=== PATIENT | male | born 1970 | race Caucasian/White ===

== ENCOUNTER 2018-07-27 17:07 | Inpatient (IN) ==
[2018-07-27] MEDS ORDERED: HYDROmorphone INJ 1 MG/ML SYRINGE IV STA (17:28)
[2018-07-27] MEDS ORDERED: ONDANSETRON INJ 2 MG/ML 2 ML VIAL IV STA (17:28)
[2018-07-27] MEDS ORDERED: SODIUM CHLORIDE 0.9% 1000ML 1,000 ML IV ONE (17:28)
[2018-07-27 17:36] LABS: Basophils # (auto) 0.02 K/uL (0-0.2); Basophils % (auto) 0.3 %; Eosinophils # (auto) 0.11 K/uL (0-0.5); Eosinophils % (auto) 1.7 %; Hematocrit (blood only) 44.7 % (42-52); Hemoglobin 15.4 g/dL (14.0-18.0); Immature Granulocytes # (auto) 0.02 K/uL (0.00-0.02); Immature Granulocytes % (auto) 0.3 %; Lymphocytes # (auto) 2.67 K/uL (1.2-3.4); Lymphocytes % (auto) 40.5 %; Mean Corpuscular Hgb Conc 34.5 g/dL (32-36); Mean Corpuscular Volume 83.4 fL (80-100); Monocytes # (auto) 0.74 K/uL (0.11-0.59); Monocytes % (auto) 11.2 %; Neutrophils # (auto) 3.04 K/uL (1.4-6.5); Platelet Count 206 K/uL (130-400); RDW Coefficient of Variation 12.7 % (11.5-14.5); RDW Standard Deviation 38.1 fL (36.4-46.3); Red Blood Count 5.36 M/uL (4.7-6.1)
[2018-07-27 17:47] LABS: INR 1.1 (0.9-1.1); Partial Thromboplastin Ratio 0.9; Partial Thromboplastin Time 25.3 Seconds (21.0-31.0); Prothrombin Time 10.8 Seconds (9.0-12.0)
[2018-07-27 17:52] LABS: Alanine Aminotransferase 40 U/L (12-78); Aspartate Aminotransferase 25 U/L (15-37); BUN Creatinine Ratio 9.1 (10-20); Blood Urea Nitrogen 13 mg/dl (7-18); Calcium 8.5 mg/dl (8.5-10.1); Carbon Dioxide 30 mmol/L (21-32); Chloride 107 mmol/L (98-107); Est GFR (African American) 69.6; Glucose 96 mg/dl (70-99); Potassium 3.5 mmol/L (3.5-5.1); Sodium 142 mmol/L (136-145)
[2018-07-27 18:03] LABS: Albumin Globulin Ratio 1.2 (0.9-2); Alkaline Phosphatase 112 U/L (45-117); Bilirubin,Total 0.7 mg/dl (0.2-1); Globulin 3.2 gm/dl (2.5-4.0); Total Protein 7.2 gm/dl (6.4-8.2); Troponin I < 0.015 ng/ml (0-0.045)
[2018-07-27 18:07] LABS: iSTAT Creatinine 1.3 mg/dl (0.6-1.3); iSTAT Hemoglobin 15.6 g/dl (14.0-18.0); iSTAT Ionized Calcium 1.14 mmol/l (1.12-1.32); iSTAT Potassium 3.4 mEq/L (3.3-5.0)
--- NOTE | 2018-07-27 18:09 | XRay Report ---
XR chest 1V portable CLINICAL HISTORY: Abdominal pain. COMPARISON STUDY: No previous studies for comparison. FINDINGS: Patient is rotated. Lung volumes are diminished. There is apparent pulmonary vascular conge stion. There is no lobar consolidation. There may be mild right lung airspace opacity. Cardiac size i s accentuated on this hypoventilatory portable AP exam. No pneumothorax or pleural effusion is noted. IMPRESSION: 1. No lung volumes. Apparent pulmonary vascular congestion. No lobar consolidation. 2. Borderline cardiomegaly. Electronically signed by: Rick Chavez M.D. 07/27/2018 6:08 PM
[2018-07-27] MEDS ORDERED: OPTIRAY 320 125ml IV PRN (18:25)
--- NOTE | 2018-07-27 18:47 | CT Scan Report ---
CT ANGIOGRAPHY OF THE CHEST, ABDOMEN, AND PELVIS CLINICAL HISTORY: Severe chest and abdominal pain. COMPARISON STUDY: Chest radiograph July 27, 2018. TECHNIQUE: Before and following the IV administration of 119 mL of Optiray-320, helical axial images of the chest, abdomen and pelvis were obtained. Maximal intensity projections and sagittal and coron al reformats were viewed on an independent 3D workstation. IV contrast was administered without comp lication. Automated exposure control was utilized for the study. A dose lowering technique was util ized adhering to the principles of ALARA. CT DOSE: 2929.73 mGy.cm FINDINGS: The caliber of the thoracic aorta is normal. There is no intramural hematoma or dissection within the thoracic aorta. The size of the heart is within normal limits. There is no pericardial ef fusion. No central pulmonary emboli are identified. The central airways are patent. There are mild gr oundglass opacities within the lungs. A few tiny pulmonary nodules are likely benign. No pneumothorax or pleural effusion is noted. No acute rib or thoracic spine fracture is identified. The abdomen and pelvis will be reported separately. There is no pneumomediastinum. There is minimal dilatation of th e esophagus. IMPRESSION: 1. No thoracic aortic dissection. 2. Minimal groundglass opacities, greater within the right lung. Atelectasis is favored although a mi ld infectious process could appear similar. Electronically signed by: Rick Chavez M.D. 07/27/2018 6:45 PM
--- NOTE | 2018-07-27 18:57 | CT Scan Report ---
CT ANGIOGRAPHY OF THE ABDOMEN AND PELVIS WITH AND WITHOUT CONTRAST CLINICAL HISTORY: midline abdominal pain COMPARISON STUDY: No previous studies for comparison. TECHNIQUE: Unenhanced and arterial phase imaging of the abdomen and pelvis was performed. Intravenous injection 119 cc Optiray 320 IV was uneventful. Sagittal and coronal reconstructions were viewed as well as maximal intensity projections. Automated exposure control was utilized for the study. A dose lowering technique was utilized adhering to the principles of ALARA. FINDINGS: The caliber of the abdominal aorta is normal. There is no dissection. The major vessels are patent. There is no intramural hematoma. No pneumatosis, free air or portal venous gas is present. B ilateral renal calculi measure up to 5 mm. There are no ureteral calculi. There is no hydronephrosis or hydroureter. There is mild distention of the gallbladder with without adjacent infiltration. There is mild to moderate gaseous distention of the colon. There is no transition point to suggest an obst ruction. The appendix is normal. There is no evidence for a small bowel obstruction. Small bowel is m ildly fluid-filled. The spleen, adrenal glands, pancreas are unremarkable. Is no peripancreatic infil tration. There is no biliary or pancreatic ductal dilatation. No lymphadenopathy is present. There is no ascites. No suspicious osseous lesions are noted. There are no lumbar spine fractures. Small fat- containing right inguinal hernia is noted. IMPRESSION: 1. No abdominal aortic dissection or aneurysm. 2. Bilateral nephrolithiasis. No ureteral calculi. 3. Mild distention of the gallbladder without adjacent infiltration. If right upper quadrant pain, an ultrasound could be obtained. 4. Mild to moderate gaseous distention of the colon without transition point to suggest a bowel obstr uction. Electronically signed by: Rick Chavez M.D. 07/27/2018 6:55 PM
[2018-07-27] MEDS ORDERED: HYDROmorphone INJ 0.5 MG/0.5 ML SYR IV STA (19:18)
--- NOTE | 2018-07-27 20:09 | Ultrasound Report ---
ABDOMINAL ULTRASOUND, RIGHT UPPER QUADRANT HISTORY: epigastric/RUQ pain, post-prandial pain. COMPARISON: CTA of the abdomen and pelvis performed earlier today. FINDINGS: Liver morphology is normal. A 1.2 cm echogenic right hepatic lobe lesion was not shown on C T. This favors a hemangioma. There is no biliary ductal dilatation. The common bile duct measures 3 m m in caliber. The pancreas is obscured by overlying bowel gas. Sludge and stones are noted within the gallbladder. The gallbladder is moderately distended. No gallbladder wall thickening. No sonographic Bae sign was elicited. There is no right hydronephrosis. IMPRESSION: 1. Stones and sludge within the gallbladder. Moderate gallbladder distention. No gallbladder wall thi ckening or sonographic Bae sign. Acute cholecystitis cannot be excluded and a hepatobiliary scan c ould be obtained if indicated. 2. No biliary ductal dilatation. 3. Obscured pancreas. Electronically signed by: Rick Chavez M.D. 07/27/2018 8:07 PM
--- NOTE | 2018-07-27 20:40 | Emergency Department Note ---
History of Present Illness General Chief Complaint: Abdominal Pain Stated Complaint: SEVERE STOMACH PAIN Source: patient Mode of arrival: ambulatory Limitations: no limitations History of Present Illness Provider Complaint: abdominal pain Onset (ago): 1 day(s) Pain Consistency: intermittent and colicky Location: suprapubic Radiation: epigastric Migration to: no migration Severity: severe Maximum Pain Intensity: 7 Current Pain Intensity: 8 Quality: + stabbing, + fullness and + sharp Relieved By: + nothing Exacerbated By: + eating Context: no foreign travel, no possible food poisoning, no sick contacts, no recent antibiotic use, no recent surgery/procedure, no recent injury and no history of similar episodes Associated Symptoms: + nausea, + chills and + anorexia; no vomiting, no diarrhea, no fever, no constipation, no melena, no hematuria, no syncope, no headache, no neck pain, no back pain, no chest pain, no weakness, no breathing d ifficulty and no numbness Treatments prior to arrival: none This 48-year-old male patient presents emergency department today, ambulatory, c omplaining of severe abdominal pain. Patient states earlier this week, he was ill with nausea, vomiting, and diarrhea. By , he started feeling better. Sunday, he noticed after he ate he was getting what he describes as "gas pains". This occurred after eating hours before sandwich and fries the first time. This lasted for approximately 1 hour after eating. He was okay overnight, then at work experience the pain after eating twice. The patient states after his first meal, the symptoms lasted for about 30 minutes and were relatively mild, but after eating his more recent meal, he noticed severely worsening gas and pressure in his abdomen with a sharp/colicky pain in the lower abdomen radiating up toward the epigastrium. The patient states the pain does radiate into his back. He has been unable to get comfortable and states his pain is severe and rates 8/10. He describes it as sharp in nature. Patient's last bowel movement was yesterday. He states it was soft but formed. He denies any vomiting, but states he feels that he would feel better if he did. Patient denies any chest pain or dyspnea. He denies any hematuria, urinary frequency, dysuria. He denies any recent fever or chills. Home Medications Home Medications Medication Instructions Recorded Confirmed Type loperamide [Imodium A-D] 2 mg PO DIRECTED PRN 07/27/18 07/27/18 History Allergies Allergy/AdvReac Type Severity Reaction Status Date / Time No Known Allergies Allergy Verified 07/27/18 17:49 Past Med/Surg History Medical History No pertinent past medical history Social History Preferred Language: Bengali Communication Ability: Effective Beliefs That Will Affect Care: Christianity Christianity Beliefs: Beny Current Living Situation: Spouse Feels Safe at Home: Yes Safety Concerns: Feels Safe At This Time Smoking Status: Never smoker Do You Dip or Chew Tobacco: No Hx Alcohol Use: Yes Alcohol type: beer Hx Substance Use: No Review of Systems A total of 10 systems reviewed and were otherwise negative Physical Exam Vital Signs: Vital Signs - 24 hr 07/27/18 17:09 07/27/18 17:42 07/27/18 18:30 Temperature 36.5 C Temperature Source Oral Sepsis Recent Feve r Within 48 Hours No Sepsis Action Take n by Nursing No Action Required Pulse Rate 88 75 Pulse Rate [Apical ] 91 H Pulse Rhythm Regular Regular Pulse Strength Normal Respiratory Rate 28 H 21 16 Respiratory Effort / Characteristics Non-Labored Respiratory Depth Normal Normal Blood Pressure 155/68 H Blood Pressure [Le ft Arm] 130/66 Blood Pressure Dedra n 97 Blood Pressure Dedra n [Left Arm] 87 Blood Pressure Pos ition Sitting Pulse Oximetry 97 94 95 Oxygen Delivery Me thod Room Air Room Air Room Air 07/27/18 19:34 07/27/18 21:00 Temperature Temperature Source Sepsis Recent Feve r Within 48 Hours Sepsis Action Take n by Nursing Pulse Rate Pulse Rate [Apical ] 93 H 89 Pulse Rhythm Pulse Strength Respiratory Rate 18 18 Respiratory Effort / Characteristics Non-Labored Respiratory Depth Normal Normal Blood Pressure Blood Pressure [Le ft Arm] 129/62 127/81 Blood Pressure Dedra n Blood Pressure Dedra n [Left Arm] 84 96 Blood Pressure Pos ition Pulse Oximetry 94 95 Oxygen Delivery Me thod Room Air Room Air Physical Exam: VITALS: Vitals are noted on the nurse's note and reviewed by myself. Vital signs stable. GENERAL: This is a 48-year-old white male, writhing around in pain, unable to get comfortable, diaphoretic, well-developed well-nourished. SKIN: The skin was without rashes, erythema, edema, or bruising. There is no tenting of the skin. Capillary reflex less than 2 seconds. HEAD: Normocephalic atraumatic. EARS: External auditory canals clear, tympanic membranes pearly aldrich without erythema or effusion bilaterally. EYES: Pupils equal round and reactive to light and accommodation. Conjunctivae without injection, sclerae without icterus. Extraocular movements intact. NOSE: Patent, turbinates without inflammation or discharge. No sinus tenderness. MOUTH: Mucous membranes moist. Tonsils are not enlarged. Pharynx without erythema or exudate. Uvula midline. Airway patent. Tongue does not deviate. NECK: Supple without nuchal rigidity. No lymphadenopathy. No thyromegaly. Cervical spine is nontender. No JVD. HEART: Regular rate and rhythm without murmurs gallops or rubs. LUNGS: Clear to auscultation bilaterally without wheezes, rales or rhonchi. No dullness to percussion. No retractions or accessory muscle use. ABDOMEN: Positive bowel sounds x 4. Normal tympanic percussion. Mildly distended and extremely tender diffusely, but specifically in the epigastrium a nd suprapubic area. No obvious masses or organomegaly. Bae sign negative. There is guarding, but no rebound tenderness. MUSCULOSKELETAL: No muscle atrophy, erythema, or edema noted. Full range of motion without joint tenderness in all extremities. No tenderness to palpation. Normal gait. Strength 5/5 throughout. NEURO: Patient was alert and oriented to person place and time. Normal sens ation to light and sharp touch. Deep tendon reflexes 2+ throughout. No focal neurological deficits. Course The patient was seen and evaluated as above. IV access obtained, labs drawn. Patient medicated with IV fluids, Dilaudid, and Zofran. I discussed case with my attending. CXR and CT scanning performed and reviewed by myself and radiologist as above. Labs reviewed by myself. I discussed the findings with the patient at bedside. Recommended ultrasound. He was agreeable. He continues to complain of colicky pain. He was given a repeat dose of 0.5 mg Dilaudid. Ultrasound performed reviewed by myself and radiologist as above. Discussed the case with the on-call surgeon. Spoke with Dr. Case. He was agreeable to medicine admission and surgical consult. Discussed case with the caser up. They were agreeable that the patient meets criteria for admission. Discussed the case with Dr. Castillo, [facility] hospitalist. He agreed to evaluate the patient. Please see his dictation regarding ongoing management care of this patient. Administered Medications Discontinued Medications Hydromorphone HCl (Dilaudid) 1 mg IV NOW STA Stop: 07/27/18 17:29 Last Admin: 07/27/18 17:36 Dose: 1 mg Documented by: [id number] Hydromorphone HCl (Dilaudid) 0.5 mg IV NOW STA Stop: 07/27/18 19:19 Last Admin: 07/27/18 19:33 Dose: 0.5 mg Documented by: [id number] Sodium Chloride (Nss 1000ml) 1,000 mls @ 999 mls/hr IV .Q1H1M ONE Stop: 07/27/18 18:28 Last Infusion: 07/27/18 18:37 Dose: 0 mls/hr Documented by: [id number] Admin: 07/27/18 17:36 Dose: 999 mls/hr Documented by: [id number] Dextrose/Sodium Chloride (D5w And Nss) 1,000 mls @ 125 mls/hr IV .Q8H [place] Stop: 08/26/18 21:56 Last Infusion: 07/28/18 10:18 Dose: 0 mls/hr Documented by: [id number] Admin: 07/28/18 07:35 Dose: 125 mls/hr Documented by: [id number] Infusion: 07/28/18 06:48 Dose: 125 mls/hr Documented by: [id number] Infusion: 07/28/18 06:25 Dose: 125 mls/hr Documented by: [id number] Infusion: 07/28/18 05:00 Dose: 125 mls/hr Documented by: [id number] Infusion: 07/28/18 04:25 Dose: 0 mls/hr Documented by: [id number] Admin: 07/27/18 22:12 Dose: 125 mls/hr Documented by: [id number] Ampicillin Sodium/Sulbactam Sodium 3,000 mg/ Sodium Chloride 108 mls @ 200 mls/hr IV Q6H [place]; Protocol Stop: 08/06/18 21:59 Last Infusion: 07/28/18 10:18 Dose: 0 mls/hr Documented by: [id number] Admin: 07/28/18 09:35 Dose: 200 mls/hr Documented by: [id number] Infusion: 07/28/18 05:00 Dose: 0 mls/hr Documented by: [id number] Admin: 07/28/18 04:23 Dose: 200 mls/hr Documented by: [id number] Infusion: 07/27/18 23:35 Dose: 0 mls/hr Documented by: [id number] Admin: 07/27/18 22:39 Dose: 200 mls/hr Documented by: [id number] Famotidine 20 mg/ Syringe 5 mls @ 2.5 mls/min IV BID [place] Stop: 08/26/18 21:56 Last Admin: 07/28/18 09:35 Dose: 2.5 mls/min Documented by: [id number] Admin: 07/27/18 22:39 Dose: 2.5 mls/min Documented by: [id number] Ioversol (Optiray 320 125ml) 119 ml IV ONCE PRN PRN Reason: Interaction Checking Stop: 07/31/18 18:24 Last Admin: 07/27/18 18:25 Dose: 119 ml Documented by: [id number] Ondansetron HCl (Zofran) 4 mg IV NOW STA Stop: 07/27/18 17:29 Last Admin: 07/27/18 17:36 Dose: 4 mg Documented by: [id number] Medical Decision Making Differential Diagnosis + peptic ulcer disease, + biliary pathology, + UTI, + obstruction, + mesenteric ischemia, + aortic pathology, + infections, + inflammatory bowel disease, + renal colic, + torsion (male), + epididymitis (male), + abdominal pain, + appendicitis, + calculus of kidney, + constipation, + diverticulitis, + endometriosis, + gastroenteritis, + pancreatitis and + small bowel obstruction Home Medications Current Medication List: was personally reviewed by me Laboratory Data Attestation: I reviewed the patient's lab results. No leukocytosis, anemia, thrombocytopenia. Renal, hepatic function, and electrolytes without significant abnormality. Coags normal. Troponin negative. Lipase mildly elevated at 406. TSH 1.55. Urinalysis negative. Result diagrams: 07/28/18 05:12 07/28/18 05:12 Lab Results 07/27/18 07/27/18 07/27/18 Range/Units 17:20 17:20 17:20 WBC 6.60 (4.8-10.8) K/uL RBC 5.36 (4.7-6.1) M/uL Hgb 15.4 (14.0-18.0) g/dL POC Hgb (14.0-18.0) g/dl Hct 44.7 (42-52) % POC Hct (42-52) % MCV 83.4 (80-100) fL MCH 28.7 (25-34) pg MCHC 34.5 (32-36) g/dL RDW Std Deviation 38.1 (36.4-46.3) fL RDW Coeff of Erasto 12.7 (11.5-14.5) % Plt Count 206 (130-400) K/uL MPV 11.0 H (7.4-10.4) fL Immature Gran % (Auto) 0.3 % Neut % (Auto) 46.0 % Lymph % (Auto) 40.5 % Elliott % (Auto) 11.2 % Eos % (Auto) 1.7 % Baso % (Auto) 0.3 % Immature Gran # (Auto) 0.02 (0.00-0.02) K/uL Neut # (Auto) 3.04 (1.4-6.5) K/uL Lymph # (Auto) 2.67 (1.2-3.4) K/uL Elliott # (Auto) 0.74 H (0.11-0.59) K/uL Eos # (Auto) 0.11 (0-0.5) K/uL Baso # (Auto) 0.02 (0-0.2) K/uL PT 10.8 (9.0-12.0) Seconds INR 1.1 (0.9-1.1) APTT 25.3 (21.0-31.0) Seconds PTT Ratio 0.9 POC Sodium (135-144) mEq/L Sodium 142 (136-145) mmol/L POC Potassium (3.3-5.0) mEq/L Potassium 3.5 (3.5-5.1) mmol/L POC Chloride (101-112) mEq/L Chloride 107 (98-107) mmol/L Carbon Dioxide 30 (21-32) mmol/L POC Total CO2 (24-31) mEq/l Anion Gap 5.0 (3-11) POC Anion Gap (16-25) mmol/L POC BUN (7-18) mg/dl BUN 13 (7-18) mg/dl Creatinine 1.38 (0.6-1.4) mg/dl POC Creatinine (0.6-1.3) mg/dl Est Cr Clr Drug Dosing 82.0 ml/min Est GFR ( Amer) 69.6 Est GFR (Non-Af Amer) 60.0 BUN/Creatinine Ratio 9.1 L (10-20) Glucose 96 (70-99) mg/dl POC Glucose (other) (70-99) mg/dl Calcium 8.5 (8.5-10.1) mg/dl POC Ioniz Calcium Aston (1.12-1.32) mmol/l Total Bilirubin 0.7 (0.2-1) mg/dl AST 25 (15-37) U/L ALT 40 (12-78) U/L Alkaline Phosphatase 112 (45-117) U/L Troponin I < 0.015 (0-0.045) ng/ml Total Protein 7.2 (6.4-8.2) gm/dl Albumin 4.0 (3.4-5.0) gm/dl Globulin 3.2 (2.5-4.0) gm/dl Albumin/Globulin Ratio 1.2 (0.9-2) Lipase 406 H (73-393) U/L TSH 1.550 (0.300-4.500) uIu/ml Urine Color Urine Appearance (Clear) Urine pH (4.5-7.5) Ur Specific [place] (1.000-1.030) Urine Protein (Negative) Urine Glucose (UA) (Negative) Urine Ketones (Negative) Urine Blood (Negative) Urine Nitrite (Negative) Urine Bilirubin (Negative) Urine Urobilinogen (Negative) Ur Leukocyte Esterase (Negative) 07/27/18 07/27/18 Range/Units 17:53 20:20 WBC (4.8-10.8) K/uL RBC (4.7-6.1) M/uL Hgb (14.0-18.0) g/dL POC Hgb 15.6 (14.0-18.0) g/dl Hct (42-52) % POC Hct 46 (42-52) % MCV (80-100) fL MCH (25-34) pg MCHC (32-36) g/dL RDW Std Deviation (36.4-46.3) fL RDW Coeff of Erasto (11.5-14.5) % Plt Count (130-400) K/uL MPV (7.4-10.4) fL Immature Gran % (Auto) % Neut % (Auto) % Lymph % (Auto) % Elliott % (Auto) % Eos % (Auto) % Baso % (Auto) % Immature Gran # (Auto) (0.00-0.02) K/uL Neut # (Auto) (1.4-6.5) K/uL Lymph # (Auto) (1.2-3.4) K/uL Elliott # (Auto) (0.11-0.59) K/uL Eos # (Auto) (0-0.5) K/uL Baso # (Auto) (0-0.2) K/uL PT (9.0-12.0) Seconds INR (0.9-1.1) APTT (21.0-31.0) Seconds PTT Ratio POC Sodium 144 (135-144) mEq/L Sodium (136-145) mmol/L POC Potassium 3.4 (3.3-5.0) mEq/L Potassium (3.5-5.1) mmol/L POC Chloride 101 (101-112) mEq/L Chloride (98-107) mmol/L Carbon Dioxide (21-32) mmol/L POC Total CO2 29 (24-31) mEq/l Anion Gap (3-11) POC Anion Gap 18.0 (16-25) mmol/L POC BUN 13 (7-18) mg/dl BUN (7-18) mg/dl Creatinine (0.6-1.4) mg/dl POC Creatinine 1.3 (0.6-1.3) mg/dl Est Cr Clr Drug Dosing ml/min Est GFR ( Amer) Est GFR (Non-Af Amer) BUN/Creatinine Ratio (10-20) Glucose (70-99) mg/dl POC Glucose (other) 99 (70-99) mg/dl Calcium (8.5-10.1) mg/dl POC Ioniz Calcium Aston 1.14 (1.12-1.32) mmol/l Total Bilirubin (0.2-1) mg/dl AST (15-37) U/L ALT (12-78) U/L Alkaline Phosphatase (45-117) U/L Troponin I (0-0.045) ng/ml Total Protein (6.4-8.2) gm/dl Albumin (3.4-5.0) gm/dl Globulin (2.5-4.0) gm/dl Albumin/Globulin Ratio (0.9-2) Lipase (73-393) U/L TSH (0.300-4.500) uIu/ml Urine Color Yellow Urine Appearance Clear (Clear) Urine pH 6.5 (4.5-7.5) Ur Specific [place] 1.037 H (1.000-1.030) Urine Protein Negative (Negative) Urine Glucose (UA) Negative (Negative) Urine Ketones Negative (Negative) Urine Blood Negative (Negative) Urine Nitrite Negative (Negative) Urine Bilirubin Negative (Negative) Urine Urobilinogen Negative (Negative) Ur Leukocyte Esterase Negative (Negative) Imaging Data Radiologist's Impression: XR chest 1V portable CLINICAL HISTORY: Abdominal pain. COMPARISON STUDY: No previous studies for comparison. FINDINGS: Patient is rotated. Lung volumes are diminished. There is apparent pulmonary vascular congestion. There is no lobar consolidation. There may be mild right lung airspace opacity. Cardiac size is accentuated on this hypoventi latory portable AP exam. No pneumothorax or pleural effusion is noted. IMPRESSION: 1. No lung volumes. Apparent pulmonary vascular congestion. No lobar consolidation. 2. Borderline cardiomegaly. Electronically signed by: Rick Chavez M.D. 07/27/2018 6:[address] ANGIOGRAPHY OF THE CHEST, ABDOMEN, AND PELVIS CLINICAL HISTORY: Severe chest and abdominal pain. COMPARISON STUDY: Chest radiograph July 27, 2018. TECHNIQUE: Before and following the IV administration of 119 mL of Optiray-320, helical axial images of the chest, abdomen and pelvis were obtained. Maximal intensity projections and sagittal and coronal reformats were viewed on an independent 3D workstation. IV contrast was administered without complication. Automated exposure control was utilized for the study. A dose lowering technique was utilized adhering to the principles of ALARA. CT DOSE: 2929.73 mGy.cm FINDINGS: The caliber of the thoracic aorta is normal. There is no intramural hematoma or dissection within the thoracic aorta. The size of the heart is within normal limits. There is no pericardial effusion. No central pulmonary emboli are identified. The central airways are patent. There are mild groundglass opacities within the lungs. A few tiny pulmonary nodules are likely benign. No pneumothorax or pleural effusion is noted. No acute rib or thoracic spine fracture is identified. The abdomen and pelvis will be reported separately. There is no pneumomediastinum. There is minimal dilatation of the esophagus. IMPRESSION: 1. No thoracic aortic dissection. 2. Minimal groundglass opacities, greater within the right lung. Atelectasis is favored although a mild infectious process could appear similar. Electronically signed by: Rick Chavez M.D. 07/27/2018 6:[address] ANGIOGRAPHY OF THE ABDOMEN AND PELVIS WITH AND WITHOUT CONTRAST CLINICAL HISTORY: midline abdominal pain COMPARISON STUDY: No previous studies for comparison. TECHNIQUE: Unenhanced and arterial phase imaging of the abdomen and pelvis was performed. Intravenous injection 119 cc Optiray 320 IV was uneventful. Sagittal and coronal reconstructions were viewed as well as maximal intensity proje ctions. Automated exposure control was utilized for the study. A dose lowering technique was utilized adhering to the principles of ALARA. FINDINGS: The caliber of the abdominal aorta is normal. There is no dissection. The major vessels are patent. There is no intramural hematoma. No pneumatosis, free air or portal venous gas is present. Bilateral renal calculi measure up to 5 mm. There are no ureteral calculi. There is no hydronephrosis or hydroureter. There is mild distention of the gallbladder with without adjacent infiltration. There is mild to moderate gaseous distention of the colon. There is no transition point to suggest an obstruction. The appendix is normal. There is no evidence for a small bowel obstruction. Small bowel is mildly fluid-filled. The spleen, adrenal glands, pancreas are unremarkable. Is no peripancreatic infiltration. There is no biliary or pancreatic ductal dilatation. No lymphadenopathy is present. There is no ascites. No suspicious osseous lesions are noted. There are no lumbar spine fractures. Small fat-containing right inguinal hernia is noted. IMPRESSION: 1. No abdominal aortic dissection or aneurysm. 2. Bilateral nephrolithiasis. No ureteral calculi. 3. Mild distention of the gallbladder without adjacent infiltration. If right upper quadrant pain, an ultrasound could be obtained. 4. Mild to moderate gaseous distention of the colon without transition point to suggest a bowel obstruction. Electronically signed by: Rick Chavez M.D. 07/27/2018 6:55 PM ABDOMINAL ULTRASOUND, RIGHT UPPER QUADRANT HISTORY: epigastric/RUQ pain, post-prandial pain. COMPARISON: CTA of the abdomen and pelvis performed earlier today. FINDINGS: Liver morphology is normal. A 1.2 cm echogenic right hepatic lobe lesion was not shown on CT. This favors a hemangioma. There is no biliary ductal dilatation. The common bile duct measures 3 mm in caliber. The pancreas is obscured by overlying bowel gas. Sludge and stones are noted within the gall bladder. The gallbladder is moderately distended. No gallbladder wall thickening. No sonographic Bae sign was elicited. There is no right hydronephrosis. IMPRESSION: 1. Stones and sludge within the gallbladder. Moderate gallbladder distention. No gallbladder wall thickening or sonographic Bae sign. Acute cholecystitis cannot be excluded and a hepatobiliary scan could be obtained if indicated. 2. No biliary ductal dilatation. 3. Obscured pancreas. Electronically signed by: Rick Chavez M.D. 07/27/2018 8:07 PM ECG Data Attestation: I personally reviewed and interpreted this ECG as follows: Indication: abdominal pain Rate (beats per minute): 65 Rhythm: normal sinus Findings: no acute ischemic change and no ectopy Comparison ECG Date: no prior available Blood Pressure Blood Pressure Findings: Normal blood pressure MDM Narrative This 48-year-old male patient presents emergency department today complaining of severe abdominal pain. The patient was writhing around in pain and unable to be calm comfortable. The pain was very colicky in nature and onset was after eating a peanut butter and jelly sandwich. Due to the nature of the pain and location being all midline in the abdomen and radiating from the mid pelvis to the sternum, there was concern for possible dissection. We did elect to perform a CTA of the chest, abdomen, and pelvis. This did not show any evidence of dissection, but did show distention of the gallbladder without adjacent infilt ration. There was mild to moderate gaseous distention of the colon without transition point. Ultrasound was performed at this point to rule out acute cholecystitis. This showed stones and sludge within the gallbladder with moderate gallbladder distention. No thickening or sonographic Bae sign. Acute cholecystitis could not be excluded and a HIDA scan was recommended by the radiologist. The patient's pain was controlled with IV narcotics. He was unable to tolerate food or fluids by mouth. I did discuss the case with the surgeon, who is agreeable to medicine admission with surgical consult. I discussed the case with the hospitalist who agreed to evaluate the patient. The patient will be admitted as an inpatient. Please see the hospitalist dictation regarding ongoing management care of this patient. The chart was completed utilizing [employer]™ Speech voice recognition software. Grammatical errors, random word insertions, pronoun errors, and incomplete sentences are an occasional consequence of this system due to software limitations, ambient noise, and hardware issues. Any formal questions or concerns about the content, text, or information contained within the body of t his dictation should be directly addressed to the provider for clarification. Impression & Plan Abdominal pain Discharge Plan Visit Data *Final* Discharge Date/Time: 07/27/18 21:43 Chief Complaint: Abdominal Pain Stated Complaint: SEVERE STOMACH PAIN ED Provider: Wilson Moreno ED Midlevel Provider: Ainsley Mason Discharge Problem: Abdominal pain Patient Disposition: Admitted As Inpatient Condition: Good Discharge Instructions Interventions: ED Discharge Assessment Last Done: 07/27/18 21:43 Discharge Problem: Abdominal pain Qualifiers: Abdominal location: generalized Qualified Code(s): R10.84 - Generalized abdom inal pain
[2018-07-27 21:25] LABS: Appearance Urine Clear (Clear); Bilirubin Urine Negative (Negative); Blood Urine Negative (Negative); Color Urine Yellow; Glucose Urine UA Negative (Negative); Ketones Urine Negative (Negative); Leukocyte Esterase Urine Negative (Negative); Nitrite Urine Negative (Negative); Protein Urine Negative (Negative); Specific Gravity Urine 1.037 (1.000-1.030); Urobilinogen Urine Negative (Negative); pH Urine 6.5 (4.5-7.5)
[2018-07-27] MEDS ORDERED: ONDANSETRON INJ 2 MG/ML 2 ML VIAL IV PRN (21:57)
[2018-07-27] MEDS ORDERED: ACETAMINOPHEN 325 MG TAB PO PRN (21:57)
[2018-07-27] MEDS ORDERED: HYDROmorphone INJ 0.5 MG/0.5 ML SYR IV PRN (21:57)
[2018-07-27] MEDS ORDERED: AMPICILLIN/SULBACTAM CONSULT ACTIVE PRN (22:07)
[2018-07-27] MEDS: D5W AND NSS 1,000 ML IV SCH (22:12)
[2018-07-27] MEDS: FAMOTIDINE 20 MG in SYRINGE 3 ML IV SCH (22:39)
[2018-07-27] MEDS: AMPICILLIN/SULBACTAM SOD 3,000 MG in 0.9 % SODIUM CHLORIDE 100 ML IV SCH (22:39)
--- NOTE | 2018-07-27 23:08 | History and Physical Report ---
DATE OF ADMISSION: 07/27/2018 CHIEF COMPLAINT: Abdominal pain. HISTORY OF PRESENT ILLNESS: This is a 48-year-old male with no significant past medical history, who presents with abdominal pain. The patient since last Sunday, was having nausea and vomiting and diarrhea. He could not eat much. Whatever he ate was coming up. Yesterday, he ate sandwich and fries which caused some abdominal discomfort and nausea and vomiting. Yesterday he had a somewhat soft bowel movement. Today, there is no bowel movement. [place] and he works in a correction facility. He had a 16-hour work schedule today and he tried to eat peanut butter with jelly, then immediately he started developing severe abdominal pain, nausea, vomiting, and came to the ER. He required significant pain medication and in the ER, imaging studies were done initially to rule out any dissection. But the studies showed distended gall bladder.. An ultrasound was obtained which showed stones and sludge within the gallbladder, moderate gallbladder distention. No gallbladder wall thickening or sonographic Bae's sign. Acute cholecystitis could not be excluded. HIDA scan recommended.There is no fever, chills, no leukocytosis. The patient had some headache last 2 days ago, but right now he has no headaches, no blurred visions, no earache, no runny nose, no sore throat, no difficulty swallowing. No chest pain, no shortness of breath, no cough, no fever, no chills, but he has severe abdominal pain it was all over the abdomen from the lower part of sternum to the pelvic region. Currently, pain is improved with pain medications. Nausea has also improved. No burning micturition, no hematuria. No blood in the stools. No swelling in the legs. No rash. Hemodynamically stable. ALLERGIES: No known drug allergies. PAST MEDICAL HISTORY: As mentioned above. PAST SURGICAL HISTORY: He had a right rotator cuff repair and also right knee repair. MEDICATIONS: None. FAMILY HISTORY: Father had CABG and stents. Mother had cancer. SOCIAL HISTORY: Denies smoking, alcohol occasionally. No drug use. REVIEW OF SYMPTOMS: As per HPI. Rest of the review of symptoms negative. PHYSICAL EXAMINATION: GENERAL: The patient is of moderate build, not in acute distress. VITAL SIGNS: Temperature 36.5, pulse 93, respiratory rate 18, blood pressure 129/62, oxygen 94% on room air. HEENT: No pallor, no icterus. Pupils equal, round, and reactive to light. NECK: No JVD, no neck masses, no carotid bruits. CARDIOVASCULAR: S1, S2 heard, regular rate and rhythm, no murmur, no gallop. RESPIRATORY SYSTEM: Normal AP diameter. No accessory muscle use. No wheezing, no crackles. ABDOMEN: Soft, bowel sounds present. Nontender. No distention. CENTRAL NERVOUS SYSTEM: Cranial nerves II-XII grossly intact, nonfocal. SKIN: Some peeling of the skin is seen in the back. EXTREMITIES: No edema, no erythema. LABORATORY DATA: WBC 6.6, hemoglobin 15.4, hematocrit 44.7, platelets 206. PT 10.8, INR 1.1, APTT 25.3. Sodium 142, potassium 3.5, chloride 107, bicarbonate 30, BUN 13, creatinine 1.3, serum glucose 196, total calcium 8.5, total bilirubin 0.7, AST 25, ALT 40, alkaline phosphatase 112. Troponin I less than 0.015. Lipase 406, TSH 1.5. Urinalysis pending. IMAGING DATA: Chest x-ray,low lung volumes, no lobar consolidation. CT of the abdomen and pelvis, no abdominal aortic dissection or aneurysm, bilateral nephrolithiasis, no ureteral calculi. Mild distention of the gallbladder without adjacent infiltration, [id number] gaseous distention of the colon with a transition point to suggest bowel obstruction. Chest CTA, no thoracic aortic dissection, minimal ground-glass opacities, greater within the right lung, atelectasis, although mild infectious process could appear similar. ASSESSMENT AND PLAN: This is a 48-year-old male who presents with severe abdominal pain, most likely biliary colic with possible cholecystitis. 1. Abdominal pain, biliary colic, possible cholecystitis on imaging studies. No leukocytosis. No white count. We will empirically place him on IV Unasyn, n.p.o., IV fluids, IV antiemetics. Surgical consult. We will get a HIDA scan and closely monitor in the medical floor. 2. Deep venous thrombosis prophylaxis, sequential compression devices for now. 3. Disposition: Closely monitor in the medical floor. Level 1 full code. MTDD
[2018-07-28] MEDS: AMPICILLIN/SULBACTAM SOD 3,000 MG in 0.9 % SODIUM CHLORIDE 100 ML IV SCH ×2 (04:23→09:35)
[2018-07-28 05:26] LABS: Basophils # (auto) 0.02 K/uL (0-0.2); Basophils % (auto) 0.3 %; Eosinophils # (auto) 0.09 K/uL (0-0.5); Eosinophils % (auto) 1.5 %; Hematocrit (blood only) 39.3 % (42-52); Hemoglobin 13.3 g/dL (14.0-18.0); Immature Granulocytes # (auto) 0.02 K/uL (0.00-0.02); Immature Granulocytes % (auto) 0.3 %; Lymphocytes # (auto) 1.65 K/uL (1.2-3.4); Lymphocytes % (auto) 27.2 %; Mean Corpuscular Hgb Conc 33.8 g/dL (32-36); Mean Corpuscular Volume 83.1 fL (80-100); Monocytes # (auto) 0.74 K/uL (0.11-0.59); Monocytes % (auto) 12.2 %; Neutrophils # (auto) 3.54 K/uL (1.4-6.5); Neutrophils % (auto) 58.5 %; Platelet Count 170 K/uL (130-400); RDW Coefficient of Variation 12.7 % (11.5-14.5); RDW Standard Deviation 38.4 fL (36.4-46.3); Red Blood Count 4.73 M/uL (4.7-6.1); White Blood Count 6.06 K/uL (4.8-10.8)
[2018-07-28 05:44] LABS: BUN Creatinine Ratio 7.5 (10-20); Calcium 7.8 mg/dl (8.5-10.1); Creatinine Clr Calc Pharmacy 102.9 ml/min; Est GFR (African American) 91.5; Potassium 3.9 mmol/L (3.5-5.1)
[2018-07-28 05:56] LABS: Albumin Level 2.9 gm/dl (3.4-5.0); Bilirubin Direct 0.1 mg/dl (0-0.2); Bilirubin,Total 0.6 mg/dl (0.2-1); Total Protein 5.4 gm/dl (6.4-8.2)
[2018-07-28 07:18] VITALS: BP 104/62; TEMP 98.4; O2SAT 95
[2018-07-28] MEDS: D5W AND NSS 1,000 ML IV SCH (07:35)
--- NOTE | 2018-07-28 09:10 | Surgery Consultation ---
Date of Consultation July 28, 2018 Assessment & Plan (1) Abdominal pain: pt is a 48 year-old male who was admitted to hospital for acute abdominal pain and diarrhea. U/S- gallstone. no gallbladder wall thickening or edema IMP: acute abdominal pain, possible, GI infection, biliary colic Plan, base on pt has no abdominal pain now, pt wants to go home today, pt will come for laparoscopic cholecystectomy, possible open or cholangiogram tomorrow, D/W benefits, risks nad alternatives of the surgery, the risks - infection, bleeding, injury CBD, bowel, may need ERCP, , pt and his understood, they agree with surgery, I answered all questions. cancel HIDA scan, pt can be discharged home today, pt should come back to ER if pt develops severe abdominal pain again, pt understood, History of Present Illness Attending Physician: Jackie Manzanares MD pt is a 48 year-old male who was admitted to hospital for 2 weeks history diarrhea with abdominal pain, nausea and vomiting, started 2 weeks ago, pt and his had diarrhea, nausea and vomiting, the pt felt better after 3 days, pt started to have worse lower abdominal pain 2 days ago, with nausea, no vomiting, now, pt has no abdominal pain, no nausea, no vomiting, pt denies fever, no diarrhea, no back pain, pt had U/S study- gallstone. otherwise pt is health in the past. Allergies Allergy/AdvReac Type Severity Reaction Status Date / Time No Known Allergies Allergy Verified 07/27/18 17:49 Home Medications Home Medications Medication Instructions Recorded Confirmed Type loperamide [Imodium A-D] 2 mg PO DIRECTED PRN 07/27/18 07/27/18 History naproxen sodium [Aleve] 220 mg PO Q12H PRN 07/27/18 07/27/18 History Patient History Medical History No pertinent past medical history Social History Preferred Language: Hungarian Communication Ability: Effective Beliefs That Will Affect Care: Christianity Christianity Beliefs: Beny Current Living Situation: Spouse Feels Safe at Home: Yes Safety Concerns: Feels Safe At This Time Smoking Status: Never smoker Do You Dip or Chew Tobacco: No Hx Alcohol Use: Yes Alcohol type: beer Hx Substance Use: No Review of Systems Constitutional: as per Subjective / HPI Ear, Nose, Mouth, Throat: as per Subjective / HPI Respiratory: as per Subjective / HPI Cardiovascular: as per Subjective / HPI Gastrointestinal: + abdominal pain and + nausea Genitourinary: + as per Subjective / HPI Musculoskeletal: as per Subjective / HPI Integumentary: as per Subjective / HPI Neurologic: as per Subjective / HPI Psychiatric: as per Subjective / HPI Endocrine: as per Subjective / HPI Hematologic / Lymphatic: as per Subjective / HPI Physical Exam Constitutional: WD/WN, vitals as above well developed and well nourished ENMT: external ear and nose normal, oropharynx normal Ears: + hearing impairment Neck: trachea midline, no thyromegaly Respiratory: normal respiratory effort, lungs clear to auscultation normal respiratory effort Cardiovascular: RRR, no murmur, no edema Rate/Rhythm: regular rate and regular rhythm Heart Sounds: normal S1 and normal S2 Gastrointestinal (Abdomen): normal bowel sounds, soft, nontender, no hepatosplenomegaly Inspection/Auscultation: abdomen normal to inspection Percussion/Palpation: abdomen soft NT, ND, no distend Neurologic: patellar DTR's 2+ bilat, sensation intact Psychiatric: Orientation: alert and oriented x 3 Results & Data Vital Signs (Past 12 Hours) Vital Signs Temp Pulse Resp BP Pulse Ox 07/28/18 07:17 36.9 C 57 L 19 104/62 95 07/27/18 22:51 37 C 61 18 129/73 92 Laboratory Results Abnormal lab results 07/27/18 07/27/18 07/27/18 Range/Units 17:20 17:20 20:20 Hgb (14.0-18.0) g/dL Hct (42-52) % MPV 11.0 H (7.4-10.4) fL [place] # (Auto) 0.74 H (0.11-0.59) K/uL Chloride (98-107) mmol/L Anion Gap (3-11) BUN/Creatinine Ratio 9.1 L (10-20) Calcium (8.5-10.1) mg/dl Total Protein (6.4-8.2) gm/dl Albumin (3.4-5.0) gm/dl Lipase 406 H (73-393) U/L Ur Specific [place] 1.037 H (1.000-1.030) 07/28/18 07/28/18 07/28/18 Range/Units 05:12 05:12 05:12 Hgb 13.3 L (14.0-18.0) g/dL Hct 39.3 L (42-52) % MPV 11.0 H (7.4-10.4) fL [place] # (Auto) 0.74 H (0.11-0.59) K/uL Chloride 109 H (98-107) mmol/L Anion Gap 2.0 L (3-11) BUN/Creatinine Ratio 7.5 L (10-20) Calcium 7.8 L (8.5-10.1) mg/dl Total Protein 5.4 L D (6.4-8.2) gm/dl Albumin 2.9 L (3.4-5.0) gm/dl Lipase (73-393) U/L Ur Specific [place] (1.000-1.030) Diagnostic Findings ABDOMINAL ULTRASOUND, RIGHT UPPER QUADRANT HISTORY: epigastric/RUQ pain, post-prandial pain. COMPARISON: CTA of the abdomen and pelvis performed earlier today. FINDINGS: Liver morphology is normal. A 1.2 cm echogenic right hepatic lobe lesion was not shown on CT. This favors a hemangioma. There is no biliary ductal dilatation. The common bile duct measures 3 mm in caliber. The pancreas is obscured by overlying bowel gas. Sludge and stones are noted within the gallbladder. The gallbladder is moderately distended. No gallbladder wall thickening. No sonographic Bae sign was elicited. There is no right hydronephrosis. IMPRESSION: 1. Stones and sludge within the gallbladder. Moderate gallbladder distention. No gallbladder wall thickening or sonographic Bae sign. Acute cholecystitis cannot be excluded and a hepatobiliary scan could be obtained if indicated. 2. No biliary ductal dilatation. 3. Obscured pancreas. CT ANGIOGRAPHY OF THE ABDOMEN AND PELVIS WITH AND WITHOUT CONTRAST CLINICAL HISTORY: midline abdominal pain COMPARISON STUDY: No previous studies for comparison. TECHNIQUE: Unenhanced and arterial phase imaging of the abdomen and pelvis was performed. Intravenous injection 119 cc Optiray 320 IV was uneventful. Sagittal and coronal reconstructions were viewed as well as maximal intensity projections. Automated exposure control was utilized for the study. A dose lowering technique was utilized adhering to the principles of ALARA. FINDINGS: The caliber of the abdominal aorta is normal. There is no dissection. The major vessels are patent. There is no intramural hematoma. No pneumatosis, free air or portal venous gas is present. Bilateral renal calculi measure up to 5 mm. There are no ureteral calculi. There is no hydronephrosis or hydroureter. There is mild distention of the gallbladder with without adjacent infiltration. There is mild to moderate gaseous distention of the colon. There is no transition point to suggest an obstruction. The appendix is normal. There is no evidence for a small bowel obstruction. Small bowel is mildly fluid-filled. The spleen, adrenal glands, pancreas are unremarkable. Is no peripancreatic infiltration. There is no biliary or pancreatic ductal dilatation. No lymphadenopathy is present. There is no ascites. No suspicious osseous lesions are noted. There are no lumbar spine fractures. Small fat-containing right inguinal hernia is noted. IMPRESSION: 1. No abdominal aortic dissection or aneurysm. 2. Bilateral nephrolithiasis. No ureteral calculi. 3. Mild distention of the gallbladder without adjacent infiltration. If right upper quadrant pain, an ultrasound could be obtained. 4. Mild to moderate gaseous distention of the colon without transition point to suggest a bowel obstruction. (1) Abdominal pain Abdominal location: generalized Qualified Code(s): R10.84 - Generalized abdominal pain
[2018-07-28] MEDS: FAMOTIDINE 20 MG in SYRINGE 3 ML IV SCH (09:35)
--- NOTE | 2018-07-28 09:37 | Anesthesiology Consultation ---
Date of Service July 29, 2018 Assessment & Plan Chart Review Chart Review: Acceptable Risk for Surgery and Patient NOT seen in Pre Admission Testing Consults Requested none Proposed Anesthesia Anesthesia Type: General History Surgery Lap Cholecystectomy Height/Weight Height: 1.83 m Weight: 105 kg Allergies Allergy/AdvReac Type Severity Reaction Status Date / Time No Known Allergies Allergy Verified 07/27/18 17:49 Medications Home Medications Medication Instructions Recorded Confirmed Last Taken loperamide [Imodium A-D] 2 mg PO DIRECTED PRN 07/27/18 07/27/18 Unknown naproxen sodium [Aleve] 220 mg PO Q12H PRN 07/27/18 07/27/18 Unknown Active Medications Generic Name Dose Route Start Last Admin Trade Name Freq PRN Reason Stop Dose Admin Dextrose/Sodium Chloride 1,000 mls @ 125 mls/hr 07/27/18 21:57 07/28/18 07:35 D5w And Nss IV 08/26/18 21:56 125 mls/hr .Q8H [place] Administration Ampicillin Sodium/Sulbactam 108 mls @ 200 mls/hr 07/27/18 22:00 07/28/18 09:35 Sodium 3,000 mg/ Sodium IV 08/06/18 21:59 200 mls/hr Chloride Q6H [place] Administration Protocol Famotidine 20 mg/ Syringe 5 mls @ 2.5 mls/min 07/27/18 21:57 07/28/18 09:35 IV 08/26/18 21:56 2.5 mls/min BID [place] Administration Past Medical History Medical History No pertinent past medical history Exercise / Class Metabolic Activity II 4-5 Yardwork/Stairs/Walk up [place] Social History Smoking Status: Never smoker Do You Dip or Chew Tobacco: No Hx Alcohol Use: Yes Alcohol type: beer alcohol intake frequency: other Alcohol Intake Frequency Comment: about 2 beers every 2-3 months Hx Substance Use: No Physical Exam Vital Signs Last Vital Signs Temp 36.9 C 07/28/18 07:17 Pulse 57 L 07/28/18 07:17 Resp 19 07/28/18 07:17 BP 104/62 07/28/18 07:17 Pulse Ox 95 07/28/18 07:17 Testing Laboratory Results 07/28/18 05:12 07/28/18 05:12 07/27/18 07/27/18 17:20 20:20 PT 10.8 INR 1.1 APTT 25.3 Urine Color Yellow Urine Appearance Clear Urine pH 6.5 Ur Specific [place] 1.037 H Urine Protein Negative Urine Glucose (UA) Negative Urine Ketones Negative Urine Nitrite Negative Ur Leukocyte Esterase Negative Electrocardiogram Date: 07/27/18 Findings: + NSR @ (65 bpm) Chest X-Ray Date: 07/27/18 FINDINGS: Patient is rotated. Lung volumes are diminished. There is apparent pulmonary vascular congestion. There is no lobar consolidation. There may be mild right lung airspace opacity. Cardiac size is accentuated on this hypoventilatory portable AP exam. No pneumothorax or pleural effusion is noted. IMPRESSION: 1. No lung volumes. Apparent pulmonary vascular congestion. No lobar consolidation. 2. Borderline cardiomegaly Other Testing 07/27/18 CT ANGIOGRAPHY OF THE CHEST, ABDOMEN, AND PELVIS CLINICAL HISTORY: Severe chest and abdominal pain. COMPARISON STUDY: Chest radiograph July 27, 2018. TECHNIQUE: Before and following the IV administration of 119 mL of Optiray-320, helical axial images of the chest, abdomen and pelvis were obtained. Maximal intensity projections and sagittal and coronal reformats were viewed on an independent 3D workstation. IV contrast was administered without complication. Automated exposure control was utilized for the study. A dose lowering techn ique was utilized adhering to the principles of ALARA. CT DOSE: 2929.73 mGy.cm FINDINGS: The caliber of the thoracic aorta is normal. There is no intramural hematoma or dissection within the thoracic aorta. The size of the heart is within normal limits. There is no pericardial effusion. No central pulmonary emboli are identified. The central airways are patent. There are mild groundglass opacities within the lungs. A few tiny pulmonary nodules are likely benign. No pneumothorax or pleural effusion is noted. No acute rib or thoracic spine fracture is identified. The abdomen and pelvis will be reported separately. There is no pneumomediastinum. There is minimal dilatation of the esophagus. IMPRESSION: 1. No thoracic aortic dissection. 2. Minimal groundglass opacities, greater within the right lung. Atelectasis is favored although a mild infectious process could appear similar.
--- NOTE | 2018-07-28 10:22 | Hospitalist Progress Note ---
Date of Service July 28, 2018 Assessment & Plan (1) Abdominal pain: Has been complaining of abdominal pain with nausea vomiting for the last 1 week and worse since Sunday Has cholelithiasis and bilateral nephrolithiasis Denies any more pain, nausea or vomiting and no more diarrhea (2) Acute cholecystitis: Has cholelithiasis with sludge in the gallbladder Mild dilatation of the gallbladder without any wall thickening and/or sonographic findings of acute cholecystitis Patient remains afebrile without any elevation of the white count Was seen by surgery and going to have laparoscopic cholecystectomy tomorrow The patient can be discharged as per surgery today and will be coming back tomorrow morning for outpatient cholecystectomy Discussed with the patient in detail and the pros and cons of leaving the hospital He has been receiving intravenous Unasyn and was advised to be n.p.o. for tonight The surgery team cannot start antibiotic tomorrow There is a small risk of having an attack of acute cholecystitis and the patient and the accepted that risk Will discharge him this afternoon (3) Bilateral nephrolithiasis: Seems to be asymptomatic No ureteric stone Subjective 07/28 The patient was seen and examined in the medical floor in presence of the He is a 48-year old man with no significant past medical history was admitted with abdominal pain nausea and vomiting He was noted to have cholelithiasis with mild distention of the gallbladder without any acute cholecystitis as per the report Denies any symptoms as of this morning No fever and/or chills He wants to go home Review of Systems Review of Systems: All systems reviewed and are unremarkable except as noted below Gastrointestinal: no abdominal pain, no belching, no nausea and no vomiting Physical Exam Physical Exam: No apparent distress at rest Constitutional: well developed and well nourished Eyes: PERRL, conjunctivae normal, anicteric sclerae ENMT: external ear and nose normal, oropharynx normal Neck: trachea midline, no thyromegaly Respiratory: normal respiratory effort, lungs clear to auscultation Cardiovascular: RRR, no murmur, no edema Gastrointestinal (Abdomen): normal bowel sounds, soft, nontender, no hepatosplenomegaly Inspection/Auscultation: abdomen normal to inspection and normal bowel sounds Percussion/Palpation: abdomen nontender, no guarding and abdomen not rigid Neurologic: patellar DTR's 2+ bilat, sensation intact Psychiatric: A+Ox3, euthymic affect Genitourinary: no CVA tenderness Lymphatic: no cervical or axillary lymphadenopathy Results & Data Vital Signs (Past 12 Hours) Vital Signs Temp Pulse Resp BP Pulse Ox 07/28/18 07:17 36.9 C 57 L 19 104/62 95 07/27/18 22:51 37 C 61 18 129/73 92 Laboratory Results Short CBC 07/27/18 07/28/18 Range/Units 17:20 05:12 WBC 6.60 6.06 (4.8-10.8) K/uL Hgb 15.4 13.3 L (14.0-18.0) g/dL Hct 44.7 39.3 L (42-52) % Plt Count 206 170 (130-400) K/uL BMP 07/27/18 07/28/18 17:20 05:12 Sodium 142 142 Potassium 3.5 3.9 Chloride 107 109 H Carbon Dioxide 30 31 BUN 13 8 D Creatinine 1.38 1.10 Glucose 96 95 Calcium 8.5 7.8 L Cardiac Enzymes 07/27/18 Range/Units 17:20 Troponin I < 0.015 (0-0.045) ng/ml Liver Function 07/27/18 07/28/18 Range/Units 17:20 05:12 Total Bilirubin 0.7 0.6 (0.2-1) mg/dl Direct Bilirubin 0.1 (0-0.2) mg/dl AST 25 17 (15-37) U/L ALT 40 29 (12-78) U/L Alkaline Phosphatase 112 78 (45-117) U/L Albumin 4.0 2.9 L (3.4-5.0) gm/dl Urine 07/27/18 Range/Units 20:20 Urine Color Yellow Urine Appearance Clear (Clear) Urine pH 6.5 (4.5-7.5) Ur Specific [place] 1.037 H (1.000-1.030) Urine Protein Negative (Negative) Urine Glucose (UA) Negative (Negative) Diagnostic Findings CTA of the chest-no thoracic aortic dissection, minimal groundglass opacities within the right lung which favors atelectasis CTA of the abdomen-no abdominal aortic dissection and/or aneurysm, bilateral nephrolithiasis without any pediatric stone Mild gallbladder distention without existent infiltration Ultrasound of the gallbladder-stones and sludge in gallbladder, moderate to moderate distention without any wall thickening or sonographic Bae sign acute cholecystitis. Cannot be excluded Hepatobiliary scan was suggested Medications Administered Current Inpatient Medications Acetaminophen (Tylenol) 650 mg PO Q4H PRN PRN Reason: pain/fever Stop: 08/26/18 21:56 Hydromorphone HCl (Dilaudid) 0.5 mg IV Q3H PRN PRN Reason: Pain Stop: 08/10/18 21:56 Dextrose/Sodium Chloride (D5w And Nss) 1,000 mls @ 125 mls/hr IV .Q8H [place] Stop: 08/26/18 21:56 Last Infusion: 07/28/18 10:18 Dose: 0 mls/hr Documented by: Ampicillin Sodium/Sulbactam Sodium 3,000 mg/ Sodium Chloride 108 mls @ 200 mls/hr IV Q6H [place]; Protocol Stop: 08/06/18 21:59 Last Infusion: 07/28/18 10:18 Dose: Infused Documented by: Famotidine 20 mg/ Syringe 5 mls @ 2.5 mls/min IV BID [place] Stop: 08/26/18 21:56 Last Admin: 07/28/18 09:35 Dose: 2.5 mls/min Documented by: Miscellaneous Information (Ampicillin/Sulbactam Consult) 1 ea N/A DAILY PRN PRN Reason: Consult Stop: 08/26/18 22:06 Ondansetron HCl (Zofran) 4 mg IV Q6H PRN PRN Reason: Nausea Stop: 08/26/18 21:56 (1) Abdominal pain Abdominal location: generalized Qualified Code(s): R10.84 - Generalized abdominal pain
[2018-07-28 11:54] VITALS: PULSE 89
--- NOTE | 2018-07-29 08:20 | Discharge Summary ---
Date of Service July 29, 2018 Admission HPI Per Admitting Provider DICTATED BY: Reid Castillo MD DATE OF ADMISSION: 07/27/2018 CHIEF COMPLAINT: Abdominal pain. HISTORY OF PRESENT ILLNESS: This is a 48-year-old male with no significant past medical history, who presents with abdominal pain. The patient since last Sunday, was having nausea and vomiting and diarrhea. He could not eat much. Whatever he ate was coming up. Yesterday, he ate sandwich and fries which caused some abdominal discomfort and nausea and vomiting. Yesterday he had a somewhat soft bowel movement. Today, there is no bowel movement. He is from [place] and he works in a correction facility. He had a 16-hour work schedule today and he tried to eat peanut butter with jelly, then immediately he started developing severe abdominal pain, nausea, vomiting, and came to the ER. He required significant pain medication and in the ER, imaging studies were done initially to rule out any dissection. But the studies showed distended gall bladder.. An ultrasound was obtained which showed stones and sludge within the gallbladder, moderate gallbladder distention. No gallbladder wall thickening or sonographic Bae's sign. Acute cholecystitis could not be excluded. HIDA scan recommended.There is no fever, chills, no leukocytosis. The patient had some headache last 2 days ago, but right now he has no headaches, no blurred visions, no earache, no runny nose, no sore throat, no difficulty swallowing. No chest pain, no shortness of breath, no cough, no fever, no chills, but he has severe abdominal pain it was all over the abdomen from the lower part of sternum to the pelvic region. Currently, pain is improved with pain medications. Nausea has also improved. No burning micturition, no hematuria. No blood in the stools. No swelling in the legs. No rash. Hemodynamically stable. Admission Exam Per Admitting Provider GENERAL: The patient is of moderate build, not in acute distress. VITAL SIGNS: Temperature 36.5, pulse 93, respiratory rate 18, blood pressure 129/62, oxygen 94% on room air. HEENT: No pallor, no icterus. Pupils equal, round, and reactive to light. NECK: No JVD, no neck masses, no carotid bruits. CARDIOVASCULAR: S1, S2 heard, regular rate and rhythm, no murmur, no gallop. RESPIRATORY SYSTEM: Normal AP diameter. No accessory muscle use. No wheezing, no crackles. ABDOMEN: Soft, bowel sounds present. Nontender. No distention. CENTRAL NERVOUS SYSTEM: Cranial nerves II-XII grossly intact, nonfocal. SKIN: Some peeling of the skin is seen in the back. EXTREMITIES: No edema, no erythema. Principal Diagnosis Cholelithiasis with acute cholecystitis Discharge Exam Constitutional well developed and well nourished Eyes PERRL, conjunctivae normal, anicteric sclerae ENMT external ear and nose normal, oropharynx normal Neck trachea midline, no thyromegaly Respiratory normal respiratory effort, lungs clear to auscultation Cardiovascular RRR, no murmur, no edema Gastrointestinal (Abdomen) normal bowel sounds, soft, nontender, no hepatosplenomegaly Inspection/Auscultation: abdomen normal to inspection and normal bowel sounds Percussion/Palpation: abdomen nontender, no guarding and abdomen not rigid Neurologic patellar DTR's 2+ bilat, sensation intact Psychiatric A+Ox3, euthymic affect Genitourinary no CVA tenderness Lymphatic no cervical or axillary lymphadenopathy Discharge Data Allergies Allergy/AdvReac Type Severity Reaction Status Date / Time No Known Allergies Allergy Verified 07/29/18 07:22 Consultations 07/27/18 20:40 ED Decision to Admit Stat 07/28/18 08:00 Consult General Surgery Routine Ordered Studies 07/27/18 17:44 CT angio abd pelvis wo/w con Stat CT angio chest dissec wo/w con Stat 07/27/18 19:18 US abdomen limited Stat Hospital Course (1) Abdominal pain: Has been complaining of abdominal pain with nausea vomiting for the last 1 week and worse since Sunday Has cholelithiasis and bilateral nephrolithiasis Denies any more pain, nausea or vomiting and no more diarrhea (2) Acute cholecystitis: Has cholelithiasis with sludge in the gallbladder Mild dilatation of the gallbladder without any wall thickening and/or sonographic findings of acute cholecystitis Patient remains afebrile without any elevation of the white count Was seen by surgery and going to have laparoscopic cholecystectomy tomorrow The patient can be discharged as per surgery today and will be coming back derrick rrow morning for outpatient cholecystectomy Discussed with the patient in detail and the pros and cons of leaving the hospital He has been receiving intravenous Unasyn and was advised to be n.p.o. for tonight The surgery team cannot start antibiotic tomorrow There is a small risk of having an attack of acute cholecystitis and the patient and the accepted that risk Will discharge him this afternoon (3) Bilateral nephrolithiasis: Seems to be asymptomatic No ureteric stone Total Time Total Time Spent Total Time Spent (In Minutes): 35 minutes Total Time Includes: Examination of the Patient, Discharge Planning, Medication Reconciliation and Communication With Other Providers Discharge Plan Discharge Items Patient Disposition: Home - Self-Care Reason For Visit: ABDOMINAL PAIN Discharge Diagnosis: Cholelithiasis with acute cholecystitis Condition: Good Discharge Goals: Decrease discomfort, Improve function and Increase independence Activity: As commented below Activity Comment: Will depend on at surgery tomorrow -07/29/2018 Non-emergency contact: Primary Care Provider Call non-emergency contact if: you have any medication questions and your symptoms worsen Follow-up/Referrals: Hamilton Shane D.O. [Primary Care Provider] - (Please make an appointment with your PCP after surgery and as per recommendation by the surgical team) Diet: See below Diet Comment: Nothing by mouth after midnight today Addtl Provider Instructions: Please come for outpatient surgery tomorrow as advised Prescriptions: Continued loperamide [Imodium A-D] 2 mg Tablet 2 mg PO DIRECTED PRN (Reason: Diarrhea) RF: 0 Discontinued naproxen sodium [Aleve] 220 mg Tablet 220 mg PO Q12H PRN (Reason: Pain) RF: 0 Stand-Alone Forms: Call Back Authorization, [facility] Discharge Orders: Discharge Order (Routine); Ordered 07/28/18 Ordered By: Jackie Manzanares Admission Data Admit Date/Time: 07/27/18 21:13 Attending Provider: Jackie Manzanares Admit Provider: Reid Castillo Primary Care Provider: Hamilton Shane Other Providers: Reid Castillo ; Christian Case Service: Surgical Services Other Interventions: Discharge Summary Assessment (RN) Last Done: 07/28/18 11:53 DC Date/Time DO NOT enter until pt leaves facility: 07/28/18 12:08
== END 2018-07-28 12:08 | disposition home or self-care (01) | DRG 446 ==
LOC: ED 17:07 → 3W 21:13